=== PATIENT | female | born 1970 | race Caucasian/White ===

== ENCOUNTER 2016-09-15 20:26 | Emergency (ER) | payer MEDICAID ==
[~2016-09-15] VITALS: Ht 162.6 cm; Wt 86.5 kg
[~2016-09-15 20:26] MED LIST: FERR27TA PO; PNV; PREN1TAB49 PO
[2016-09-15 20:29] VITALS: Ht 162.6 cm; Wt 86.5 kg
[2016-09-15] MEDS ORDERED: KETOROLAC 60 MG INJ IM STA (23:33)
--- NOTE | 2016-09-15 23:49 | ERD ---
ER Documentation Chief Complaint Date/Time DATE: 09/15/16 TIME: 23:45 Chief Complaint back pain running down to right leg HPI 46-year-old female presents here in emergency department for complaints of right lower back pain radiating to the right lower leg started 2 days ago. Patient denies any trauma on affected area. Patient denies any numbness or tingling. Patient describes the pain sharp pain, 6/10 scale, radiates from the right lower back to the right lower leg. Patient denies any swelling. Patient denies any fever or chills. Patient denies any incontinence. Patient denies hematuria or dysuria. ROS All systems reviewed and are negative except as per history of present illness. Medications Home Meds Reported Medications Ferrous Sulfate (Iron) 1 Tab Tablet, 1 TAB PO 08/08/11 Vits W-Ca,Fe,Fa(<1MG) () 1 Tab Tablet, 1 TAB PO 08/08/11 [Pnv] No Conflict Check 02/27/11 Allergies Allergies: Coded Allergies: No Known Allergy (Verified , 02/27/11) PMhx/Soc History of Surgery: Yes () Hx Miscellaneous Medical Probl: No (DENIES PMH) Hx Alcohol Use: No Hx Substance Use: No Hx Tobacco Use: No Smoking Status: Never smoker FmHx Family History: No coronary disease, No diabetes, No other Physical Exam Vitals Vital Signs Date Time Temp Pulse Resp B/P Pulse Ox O2 Delivery O2 Flow Rate FiO2 09/15/16 20:29 98.5 83 20 135/8 100 Physical Exam GENERAL: The patient is well developed and appropriate for usual state of health, in no apparent distress. CHEST: Clear to auscultation bilaterally. There are no rales, wheezes or rhonchi. HEART: Regular rate and rhythm. No murmurs, clicks, rubs or gallops. No S3 or S4. ABDOMEN: Soft, nontender and nondistended. Good bowel sounds. No rebound or guarding. No gross peritonitis. No gross organomegaly or masses. No Dill sign or McBurney point tenderness. BACK: No midline or flank tenderness. No tenderness on the right paraspinal aspect of the lumbar spine, positive right straight leg test. EXTREMITIES: Equal pulses bilaterally. There is no peripheral clubbing, cyanosis or edema. No focal swelling or erythema. Full range of motion. Grossly neurovascularly intact. NEURO: Alert and oriented. Cranial nerves 2-12 intact. Motor strength in all 4 extremities with 5/5 strength. Sensation grossly intact. Normal speech and gait. SKIN: There is no apparent rash or petechia. The skin is warm and dry. HEMATOLOGIC AND LYMPHATIC: There is no evidence of excessive bruising or lymphedema. No gross cervical, axillary, or inguinal lymphadenopathy. Results 24 hrs Laboratory Tests Test 09/16/16 00:02 Bedside Urine pH (LAB) 6.0 Bedside Urine Protein (LAB) Trace Bedside Urine Glucose (UA) Negative Bedside Urine Ketones (LAB) Trace Bedside Urine Blood 2+ Bedside Urine Nitrite (LAB) Negative Bedside Urine Leukocyte Esterase (L Negative Current Medications Medications (Trade) Dose Ordered Sig/Imelda Route PRN Reason Start Time Stop Time Status Last Admin Dose Admin Ketorolac Tromethamine (Toradol) 60 mg ONCE STAT IM 09/15/16 23:33 09/15/16 23:35 DC 09/16/16 00:10 Patient was given medication for pain here in emergency department, after treatment, patient verbalized feeling much better. Patient's pain is improved. Procedures/MDM Medical Decision Making: Patient's pain is most likely consistent with back pain possibly sciatica. Patient also has +2 blood in the urine, nonspecific, also have renal colic, no symptoms of infection, no leukocytosis, no suspicion for an infected stone. No suspicion for hydronephrosis. There is no suspicion for neurovascular compromise. Patient has intact sensation and circulation of the affected extremity. There is low suspicion for septic arthritis. Patient does not have any fever. Radiology exam is not indicated at this time. Low suspicion for cauda equina syndrome, any acute bacterial infection, fractures, patient did not have any trauma in affected area. No incontinence.. Disposition: Home. Patient is given prescription for ibuprofen for mild to moderate pain, Sodus for severe pain, gabapentin. Patient was advised to lifting , possibly request an MRI with primary care doctor for further evaluation. Patient was advised that if symptoms are worse, numbness, tingling, high fever, unable to move joint, worsening symptoms, to return to emergency department immediately. Otherwise, patient is advised to follow up with the primary care doctor in 5-7 days for reevaluation of symptoms. Departure Diagnosis: Primary Impression: Back pain Back pain location: low back pain Chronicity: acute Back pain laterality: right Sciatica presence: with sciatica Sciatica laterality: sciatica of right side Qualified Code: M54.41 - Acute right-sided low back pain with right -sided sciatica Condition: Stable Patient Instructions: Back Pain (Acute Or Chronic) LAKEISHA CONNER NP September 15, 2016 23:49
[2016-09-16 00:01] LABS: URINE BLOOD (Dip) POC 2+ (NEGATIVE)
[2016-09-16] MEDS ORDERED: HYDR-906 PO (00:38)
[2016-09-16] MEDS ORDERED: IBUP-1542 PO (00:38)
[2016-09-16] MEDS ORDERED: GABA300C16 PO (00:38)
[2016-09-16 00:59] VITALS: BP 142/84; PULSE 72; RESP 20; TEMP 98.4
== END 2016-09-16 01:00 | disposition home or self-care (01) ==
LOC: FTE 20:26
DX: M54.41 Lumbago with sciatica, right side (principal)
CPT/HCPCS: 81003; 96372; J1885; Z7502

== ENCOUNTER 2018-10-09 13:47 | Emergency (ER) | payer MEDICAID ==
[~2018-10-09] VITALS: Ht 160 cm; Wt 88.8 kg
[~2018-10-09 13:47] MED LIST changes: +GABA300C16 PO; +HYDR-4011 PO; +IBUP-1542 PO
[2018-10-09 13:51] VITALS: BP 134/84; PULSE 72; RESP 18; Ht 160 cm; Wt 88.8 kg
[2018-10-09] MEDS ORDERED: ACET-141 PO (17:02)
[2018-10-09] MEDS ORDERED: IBUP-1561 PO (17:02)
--- NOTE | 2018-10-09 17:05 | ERD ---
ER Documentation Chief Complaint Chief Complaint left big toe, swollen and bruised s/p fall 2 days ago ROS All systems reviewed and are negative except as per history of present illness. Medications Home Meds Active Scripts Acetaminophen* (Acetaminophen*) 500 MG Extra Strength Tablet, 500 MG PO Q4H PRN for PAIN AND OR ELEVATED TEMP, #30 TAB Prov:BENITA JACOBO DO 10/09/18 Ibuprofen* (Motrin*) 400 Mg Tab, 400 MG PO Q6, #30 TAB Prov:BENITA JACOBO DO 10/09/18 Hydrocodone/Acetaminophen ([place] 5-325 Tablet) 1 Each Tablet, 1 TAB PO Q6H PRN for SEVERE PAIN LEVEL 7-10, #20 TAB Prov:LAKEISHA CONNER [employer] 09/16/16 Gabapentin* (Gabapentin*) 300 Mg Capsule, 300 MG PO BID, #60 CAP Prov:LAKEISHA CONNER [employer] 09/16/16 Ibuprofen* (Motrin*) 600 Mg Tab, 600 MG PO Q6H PRN for PAIN AND OR ELEVATED TEMP, #30 TAB Prov:LAKEISHA CONNER [employer] 09/16/16 Reported Medications Ferrous Sulfate (Iron) 1 Tab Tablet, 1 TAB PO 08/08/11 Vits W-Ca,Fe,Fa(<1MG) () 1 Tab Tablet, 1 TAB PO 08/08/11 [Pnv] No Conflict Check 02/27/11 Allergies Allergies: Coded Allergies: No Known Allergy (Verified , 02/27/11) PMhx/Soc History of Surgery: Yes () Hx Neurological Disorder: No Hx Respiratory Disorders: No Hx Cardiac Disorders: No Hx Psychiatric Problems: No Hx Miscellaneous Medical Probl: No (DENIES PMH) Hx Alcohol Use: No Hx Substance Use: No Hx Tobacco Use: No Smoking Status: Never smoker Physical Exam Vitals Vital Signs Date Temp Pulse Resp B/P (MAP) Pulse Ox O2 O2 Flow FiO2 Time Delivery Rate 10/09/18 97.9 72 18 134/84 97 13:51 (101) Physical Exam Const: No acute distress Head: Atraumatic Eyes: Normal Conjunctiva ENT: Normal External Ears, Nose and Mouth. Neck: Full range of motion. No meningismus. Resp: Clear to auscultation bilaterally Cardio: Regular rate and rhythm, no murmurs Abd: Soft, non tender, non distended. Normal bowel sounds Skin: No petechiae or rashes Back: No midline or flank tenderness Ext: No cyanosis, or edema Neur: Awake and alert Psych: Normal Mood and Affect Departure Diagnosis: Primary Impression: Toe fracture Encounter type: initial encounter Toe: great toe Fracture type: closed Phalanx: distal Fracture alignment: displaced Laterality: left Qualified Codes: S92.422A - Displaced fracture of distal phalanx of left great toe, initial encounter for closed fracture Condition: Fair Patient Instructions: Finger and Toe Fractures (Broken Finger or Toe) Referrals: [facility] YOU HAVE RECEIVED A MEDICAL SCREENING EXAM AND THE RESULTS INDICATE THAT YOU DO NOT HAVE A CONDITION THAT REQUIRES URGENT TREATMENT IN THE EMERGENCY DEPARTMENT. FURTHER EVALUATION AND TREATMENT OF YOUR CONDITION CAN WAIT UNTIL YOU ARE SEEN IN YOUR DOCTORS OFFICE WITHIN THE NEXT 1-2 DAYS. IT IS YOUR RESPONSIBILITY TO MAKE AN APPOINTMENT FOR FOLOW-UP CARE. IF YOU HAVE A PRIMARY DOCTOR --you should call your primary doctor and schedule an appointment IF YOU DO NOT HAVE A PRIMARY DOCTOR YOU CAN CALL OUR PHYSICIAN REFERRAL HOTLINE AT IF YOU CAN NOT AFFORD TO SEE A PHYSICIAN YOU CAN CHOSE FROM THE FOLLOWING [facility] [address] [facility]. [facility] [address] [facility] [facility] [address] [facility] [facility] [address] [facility] [facility] [address] [facility] [facility] [address] [facility]. [facility] Urgent Care 7 a.m.- 11 p.m. Every Day of the Week NO APPOINTMENT OR AUTHORIZATION NEEDED Additional Instructions: Llame al doctor MAANA y nolberto cortes LISY PARA DENTRO DE 1-2 FRANCO.Dgale a la secretaria que nosotros le instruimos hacer esta lisy.Avise o llame si nair condicin se empeora antes de la lisy. Regresa aqui si peor o no mejor. Follow up with orthopedic surgery BENITA JACOBO DO October 09, 2018 17:05
== END 2018-10-09 17:25 | disposition home or self-care (01) ==
LOC: FTE 13:47
DX: S92.422A Displaced fracture of distal phalanx of left great toe, initial encounter for closed fracture (principal); W19.XXXA Unspecified fall, initial encounter; Y92.9 Unspecified place or not applicable
CPT/HCPCS: 73630; Z7502